=== PATIENT | male | born 1995 | race Caucasian/White ===

== ENCOUNTER → 2021-07-10 | Outpatient (CLI) | payer BC ==
[~2021-07-10] MED LIST: ACHD5005 PO; CEPH500T PO; METH1PAT4 TD
--- NOTE | 2021-07-10 11:43 | Diagnostic Imaging Report ---
PROCEDURE: US Scrotum. TECHNIQUE: Multiple real-time grayscale images were obtained over the scrotum in various projections bilaterally. INDICATION: Left testicular pain. Comparison with previous ultrasound of 12/10/2013. FINDINGS: Right testicle measures 4.4 x 3 x 2.3 cm. Left testicle measures 4.7 x 2.7 x 2.4 cm. The testicles appear normal. There is normal blood flow to both testicles. The epididymides show small cyst in the head bilaterally measuring 4 x 5 mm on the left and 3 x 2 mm on the right. There is a small hydrocele on the right with large hydrocele on the left. There are no varicoceles demonstrated. There is suggestion of a inguinal hernia on the left containing abdominal fat. IMPRESSION: 1. Testicles are normal. Small epididymal cyst. 2. Large hydrocele on the left. Probable left inguinal hernia containing abdominal fat. Dictated by: Dictated on workstation # [id number]
== END ==
LOC: RAD 10:36
PROVIDERS: ATTEND Family Medicine
DX: N50.3 Cyst of epididymis (principal); N43.3 Hydrocele, unspecified; N50.89 Other specified disorders of the male genital organs; N45.3 Epididymo-orchitis
CPT/HCPCS: 76870

== ENCOUNTER → 2021-07-31 | Outpatient (CLI) | payer BC ==
[~2021-07-31] MED LIST changes: +CATHETER FLUSH 10 ML SYR IV PRN; +IOHEXOL 350 MG/ML 100 ML (OMNIPAQUE 350) VIAL IV ONE; +NS 100 ML (IVPB) BAG IV ONE
--- NOTE | 2021-07-31 18:07 | Diagnostic Imaging Report ---
PROCEDURE: CT pelvis with contrast. TECHNIQUE: Oral and intravenous contrast were administered with pelvic CT performed. Auto Exposure Controls were utilized during the CT exam to meet ALARA standards for radiation dose reduction. INDICATION: Left inguinal hernia. History of hernia at 7-8 years old. COMPARISON: Ultrasound from 07/10/2021 FINDINGS: No acute fracture is seen in the pelvis. Alignment is normal. The femoral heads are well-seated in the acetabula bilaterally. The sacroiliac joints are patent. There is grade 1 anterolisthesis at L5-S1 with bilateral L5 pars defects. There is mild disc height loss. There is a small fat containing left inguinal hernia with no bowel involvement. There is some fat stranding in the left lower abdomen which could be from prior repair. The hernia sac does not appear to extend all the way into the scrotum. There is a moderate left hydrocele. There is moderate stool in the colon and rectum. The appendix is normal. No free fluid or free air is seen. No lymphadenopathy or other masses are seen. IMPRESSION: 1. Small fat-containing left inguinal hernia with no bowel involvement. This does not appear to extend all the way to the scrotum and there is a moderate left hydrocele. 2. Grade 1 anterolisthesis at L5-S1 with bilateral L5 pars defects. Dictated by: Dictated on workstation # [id number]
== END ==
LOC: RAD 13:50
PROVIDERS: ATTEND Urology
DX: K40.91 Unilateral inguinal hernia, without obstruction or gangrene, recurrent (principal); N43.3 Hydrocele, unspecified; M43.17 Spondylolisthesis, lumbosacral region
CPT/HCPCS: 72193

== ENCOUNTER 2021-09-29 05:33 | Outpatient (CLI) | payer BC ==
[~2021-09-29] VITALS: Ht 172.7 cm; Wt 97.7 kg
[~2021-09-29 05:33] MED LIST changes: -CATHETER FLUSH 10 ML SYR IV PRN; -IOHEXOL 350 MG/ML 100 ML (OMNIPAQUE 350) VIAL IV ONE; -NS 100 ML (IVPB) BAG IV ONE
== END 2021-10-01 09:41 | disposition home or self-care (01) ==
LOC: PREOP 05:33
PROVIDERS: ATTEND Urology
DX: Z01.818 Encounter for other preprocedural examination (principal)

== ENCOUNTER 2021-10-06 06:26 | Day surgery (SDC) | payer BC ==
[~2021-10-06] VITALS: Ht 172.7 cm; Wt 97.7 kg
[2021-10-06] VITALS (10 sets, daily range): BP systolic 107–146; BP diastolic 71–107
[2021-10-06] MEDS ORDERED: ceFAZolin INJECTION 1,000 MG VIAL IV ONE (06:30)
[2021-10-06] MEDS: LACTATED RINGERS 1,000 ML IV PRN ×2 (07:00→07:52)
[2021-10-06] MEDS ORDERED: fentaNYL INJ 100 MCG/2 ML AMP ONE ×2 (07:10→08:08)
[2021-10-06] MEDS ORDERED: proPOfol 200 MG/20 ML (DIPRIVAN) VIAL IV ONE (07:10)
[2021-10-06] MEDS ORDERED: LIDOCAINE PF 2% 5 ML (XYLOCAINE) VIAL ONE (07:10)
[2021-10-06] MEDS ORDERED: ONDANSETRON 4 MG/2 ML (SDV) Z0FRAN ONE (07:10)
[2021-10-06] MEDS ORDERED: MIDAZOLAM 2 MG/2 ML (VERSED) VIAL ONE (07:10)
--- NOTE | 2021-10-06 07:20 | Progress Note-Pre Operative ---
Pre-Operative Progress Note H&P Reviewed The H&P was reviewed, patient examined and no changes noted. Date Seen by Provider: Oct 06, 2021 Time Seen by Provider: 07:19 Date H&P Reviewed: Oct 06, 2021 Time H&P Reviewed: 07:19 Pre-Operative Diagnosis: LARGE LEFT HYDROCELE NESSA HOUSTON MD Oct 06, 2021 07:20
--- NOTE | 2021-10-06 07:26 | Progress Note-Post Operative ---
Post-Operative Progess Note Surgeon (s)/Interlocking And Signal Mechanic (s) Surgeon NESSA HOUSTON MD Interlocking And Signal Mechanic: NONE Pre-Operative Diagnosis LARGE LEFT HYDROCELE Post-Operative Diagnosis SAME Procedure & Operative Findings Date of Procedure 10/06/21 Procedure Performed/Findings LT HYDROCELECTOMY Anesthesia Type GENERAL Estimated Blood Loss Estimated blood loss (mL): LESS THAN 50 CC Specimens/Packing Specimens Removed NONE TO PATH Packin/4 # AMY DRAIN NESSA HOUSTON MD Oct 06, 2021 07:26
--- NOTE | 2021-10-06 07:29 | Discharge Inst-Urology ---
Discharge Inst-Urology Reconcile Patient Problems Problems Reviewed?: Yes Final Diagnosis LEFT LARGE HYDROCELE Patient Instructions/Follow Up Plan/Assessment/Instructions Come to office tomorrow 9am to DC drain, start showers after that no bath Please make appointment to been seen in office in 2 weeks. Rest and scrotal support till then Keep bowels soft and moving Ice to scrotum in RR and at home for 6 hours and then PRN Increase oral fluids for 48 hours and then as needed. Diet as tolerated. If questions or concerns contact your physician Or seek help at emergency department. NESSA HOUSTON MD Oct 06, 2021 07:29
[2021-10-06] MEDS ORDERED: MIDAZOLAM 2 MG/2 ML (VERSED) VIAL IV ONE (07:30)
[2021-10-06] MEDS ORDERED: OXYC1TAB11 PO (07:41)
[2021-10-06] MEDS ORDERED: CEPH500T PO (07:41)
--- NOTE | 2021-10-06 08:58 | Anesthesia-General Post-Op ---
General Patient Condition Mental Status/LOC: Same as Preop Cardiovascular: Satisfactory Nausea/Vomiting: Absent Respiratory: Satisfactory Pain: Controlled Complications: Absent Post Op Complications Complications None Follow Up Care/Instructions Patient Instructions None needed. Anesthesia/Patient Condition Patient Condition Patient is doing well, no complaints, stable vital signs, no apparent adverse anesthesia problems. No complications reported per nursing. ALEXANDRU HANNA CRNA Oct 06, 2021 08:58
[2021-10-06] MEDS ORDERED: HYDROmorphone 2 MG/ML VIAL (DILAUDID) IV ONE (09:00)
[2021-10-06] MEDS ORDERED: ONDANSETRON 4 MG/2 ML (SDV) Z0FRAN IVP PRN (09:00)
[2021-10-06] MEDS ORDERED: SEVOFLURANE (ULTANE) 15 ML INHAL SOLN ONE (09:36)
--- NOTE | 2021-10-06 18:15 | OPERATIVE REPORT ---
DATE OF SERVICE: 10/06/2021 PREOPERATIVE DIAGNOSIS: Large left hydrocele. POSTOPERATIVE DIAGNOSIS: Large left hydrocele. OPERATION PERFORMED: Left hydrocelectomy. SURGEON: Aldo Houston MD ANESTHESIA: General. COMPLICATIONS: None. DESCRIPTION OF PROCEDURE: Under satisfactory general anesthesia, the patient in supine position, genitalia, abdomen and thigh were prepped and draped in the usual sterile fashion. An incision was made in the median rhaphe of the scrotum, carried through the left scrotal compartment. The testicle and appendages were delivered in the wound. They were healthy and normal. A large amount of hydrocele fluid was suctioned beforehand. Bleeders were cauterized as the dissection was proceeding. I went ahead and everted the hydrocele sac behind the cord using interrupted chromic catgut sutures. Hemostasis was complete. Testicle was replaced in the scrotal compartment, which was drained with a [place] drain quarter of an inch brought through a separate stab wound at the bottom of the incision and bottom of the scrotum, secured with a 3-0 chromic catgut suture. Closure was performed in layers, first the dartos with a running 3-0 chromic catgut and then the skin was interrupted 4-0 Vicryl. A Telfa, fluff and scrotal support was applied. Estimated blood loss was less than 50 mL, none of which was replaced. Instrument and needle counts were correct x2. The patient tolerated the procedure and anesthesia well and was sent to recovery room in stable condition. Job ID: [id number] DocumentID: [id number] Dictated Date: 10/06/2021 09:00:15 Precision Assembly Inspector Date: 10/06/2021 18:14:54 Dictated By: ALDO HOUSTON MD
== END 2021-10-06 10:50 | disposition home or self-care (01) ==
LOC: SDC 06:26
PROVIDERS: ATTEND Urology
DX: N43.3 Hydrocele, unspecified (principal)
CPT/HCPCS: 87081